=== PATIENT | female | born 1970 | race Caucasian/White ===

== ENCOUNTER 2022-04-22 13:38 | Emergency (ER) | payer OTHER ==
[~2022-04-22] VITALS: Ht 157.5 cm; Wt 88.6 kg
[2022-04-22] MEDS ORDERED: NITR100C2 (14:05)
[2022-04-22] MEDS ORDERED: CLOT1CRE56 (14:05)
[2022-04-22] MEDS ORDERED: METR-265 (14:05)
[2022-04-22] MEDS ORDERED: PHEN-501 (14:05)
[2022-04-22] MEDS ORDERED: BASA100I SC (17:40)
[2022-04-22] MEDS ORDERED: AMIT10TA7 PO (17:41)
[2022-04-22] MEDS ORDERED: LIPI10TA PO (17:42)
[2022-04-22] MEDS ORDERED: LISI5TAB11 PO (17:42)
[2022-04-22] MEDS ORDERED: ESCI5SOL3 PO (17:44)
[2022-04-22] MEDS ORDERED: ADME100I SC (17:45)
[2022-04-22] MEDS ORDERED: NS 1,000 ML IV ONE (18:20)
[2022-04-22] MEDS ORDERED: cefTRIAXone SOD 1 GM in D5W MINI-BAG PLUS 50 ML IV ONE (18:30)
[2022-04-22] MEDS ORDERED: ACETAMINOPHEN 500 MG TAB PO ONE (18:30)
[2022-04-22 18:51] LABS: BASO % 0.5 % (0.0-1.0); EOS # 0.1 10^3/uL (0.0-0.5); EOS % 0.8 % (0.0-3.0); HEMATOCRIT 41.2 % (36.0-47.0); HEMOGLOBIN 13.9 g/dl (12.0-15.5); LYMPH # 2.7 10^3/uL (1.5-5.0); LYMPH % 31.5 % (24.0-44.0); MEAN CORPUSCULAR HEMOGLOBIN 30.7 pg (27.0-33.0); MEAN CORPUSCULAR HGB CONC 33.7 g/dl (32.0-36.5); MEAN CORPUSCULAR VOLUME 90.9 fl (80.0-96.0); MONO # 0.5 10^3/uL (0.0-0.8); MONO % 5.9 % (2.0-8.0); NEUTROPHILS # 5.2 10^3/uL (1.5-8.5); NEUTROPHILS % 61.1 % (36.0-66.0); PLATELET COUNT, AUTOMATED 207 10^3/uL (150-450); RED BLOOD COUNT 4.53 10^6/uL (4.00-5.40); WHITE BLOOD COUNT 8.5 10^3/uL (4.0-10.0)
[2022-04-22] MEDS ORDERED: ISOVUE-370 76% 100ML VIAL As Ordered ONE (19:13)
[2022-04-22 19:34] LABS: ALBUMIN 3.4 GM/DL (3.2-5.2); ALT/SGPT 34 U/L (12-78); BILIRUBIN,DIRECT 0.2 MG/DL (0.0-0.2); BILIRUBIN,TOTAL 0.6 MG/DL (0.2-1.0); BLOOD UREA NITROGEN 12 MG/DL (7-18); CALCIUM LEVEL 8.9 MG/DL (8.5-10.1); CARBON DIOXIDE LEVEL 26 MEQ/L (21-32); CHLORIDE LEVEL 100 MEQ/L (98-107); CREATININE FOR GFR 0.68 MG/DL (0.55-1.30); GLOMERULAR FILTRATION RATE > 60.0 (>51); GLUCOSE, FASTING 208 MG/DL (70-100); LIPASE 85 U/L (73-393); POTASSIUM SERUM 3.6 MEQ/L (3.5-5.1); SODIUM LEVEL 133 MEQ/L (136-145); TOTAL PROTEIN 7.3 GM/DL (6.4-8.2)
[2022-04-22 20:40] LABS: HCG, SERUM QUALITATIVE NEGATIVE (NEGATIVE)
[2022-04-22 21:29] LABS: GC DNA AMPLIFICATION NEGATIVE (NEGATIVE)
[2022-04-22 22:01] LABS: C REACTIVE PROTEIN QUANTITATIV 5.22 MG/DL (0.00-0.30)
[2022-04-22 22:33] VITALS: BP 159/79
[2022-04-22 22:36] LABS: ERYTHROCYTE SEDIMENTATION RATE 43 mm/hr (0-30)
[2022-04-22 22:39] LABS: RSV AMPLIFICATION NEGATIVE (NEGATIVE)
[2022-04-22] MEDS ORDERED: KETOROLAC 30 MG/ML 1ML VIAL IM ONE (23:25)
[2022-04-22] MEDS ORDERED: AMOX875T2 PO (23:25)
== END 2022-04-22 23:37 | disposition home or self-care (01) ==
LOC: M ED 13:38 → EDBD 13:38 → M ED 23:37
DX: R30.0 Dysuria (principal); R16.0 Hepatomegaly, not elsewhere classified; N76.0 Acute vaginitis; B37.3 Candidiasis of vulva and vagina; E11.65 Type 2 diabetes mellitus with hyperglycemia; I10 Essential (primary) hypertension; Z79.4 Long term (current) use of insulin; Z88.5 Allergy status to narcotic agent; Z88.1 Allergy status to other antibiotic agents; Z79.899 Other long term (current) drug therapy
CPT/HCPCS: 74177; 80047; 80048; 80076; 81000; 81015; 83036; 83605; 83690; 84703; 85025; 85652; 86140; 87040; 87086; 87102; 87210; 87252; 87631; 87661; 87810; 87850; 96365; 96366; 96372; 99284; J0696; J1885; Q9967